=== PATIENT | female | born 1990 | race Caucasian/White ===

== ENCOUNTER → 2017-01-09 12:36 | Observation (INO) ==
[2017-01-09 11:45] LABS: Bilirubin,Urine Negative (Negative); Blood,Urine Negative (Negative); Color,Urine Yellow (Yellow); Glucose,Urine (UA) Normal (Normal); Ketones,Urine Negative (Negative); Leukocyte Esterase,Urine Moderate (Negative); Nitrite,Urine Negative (Negative); PH,Urine 6.5 pH Units (5.0-8.0); Protein,Urine Negative (Neg-Trace); Urobilinogen,Urine Normal (Normal)
[2017-01-09 11:46] LABS: Hyaline Casts,Urine None Seen per lpf (None-Few)
[2017-01-09 11:48] LABS: Clarity,Urine Slightly Hazy (Clear)
[2017-01-09 11:52] LABS: Amphetamine Screen,Urine Negative ng/mL (Cutoff=1000); Barbiturate Screen,Urine Negative ng/mL (Cutoff=200); Benzodiazepines Screen,Urine Negative ng/mL (Cutoff=200); Cannabinoid Screen,Urine Negative ng/mL (Cutoff = 50); Cocaine Screen,Urine Negative ng/mL (Cutoff= 300); Opiate Screen,Urine Negative ng/mL (Cutoff=300); Phencyclidine Screen,Urine Negative ng/mL (Cutoff=25)
--- NOTE | 2017-01-09 11:53 | OB/GYN Progress Note ---
Date of Encounter: 01/09/17 Time of Encounter: 11:50 - Assessment and Plan (1) 31 weeks gestation of Current Visit: Yes Status: Acute Admitted for labor evaluation (2) Vaginal discharge during in third trimester Current Visit: Yes Status: Acute Speculum exam Negative nitrazine (3) Cramping affecting , antepartum Current Visit: Yes Status: Acute External and toco monitoring SVE FT/thick/high (4) Non-stress test reactive Current Visit: Yes Status: Acute 125 bpm, moderate variability, + 15x15 accels, no decels. Subjective - Subjective Principal diagnosis: Vaginal discharge, abdominal cramping, low back pain 31w1d Interval history: Pt is a 26 year old, at 31w1d admitted for complaint of "menstrual cramping " low back pain, and increased vaginal discharge. Patient reports + movement, denies bleeding. Denies itching and burning, does report lower pelvic pain that radiates to the top of the thighs. Antepartum ROS: movement normal, no loss of fluid, no vaginal bleeding Objective - Vital Signs Vital Signs: Intake and Output 01/08/17 01/09/17 01/09/17 23:59 07:59 15:59 Other: Weight 106.9 kg Patient Weight 01/09/17 23:59 Weight 106.9 kg - Exam FHR: auscultation normal, category 1 FHR comments: FHR 125 bpm, moderate variability, + 15x15 accels, no decels. Category I tracing Auscultation: bilateral: normal Abdomen: Present: normal appearance, soft, gravid Uterus: Present: normal Cervical dilation: FT Cervix effacement: thick station: -3 Comments: Sterile speculum exam completed. Normal white vaginal discharge noted in vaginal vault. No fluid visualized, nitrazine negative. Negative CVA tenderness. - Labs Labs: Abnormal lab results Ur Leukocyte Esterase Moderate (Negative) H 01/09/17 11:35
[2017-01-09 11:57] LABS: Squamous Epithelial Cell,Urine Few per lpf (None-Few)
[2017-01-09 11:58] LABS: Bacteria,Urine Many per hpf (None-Few); RBC,Urine 0-3 per hpf (0-3)
--- NOTE | 2017-01-09 12:22 | Discharge Summary ---
Date of Encounter: 01/09/17 Time of Encounter: 12:21 - Discharge Diagnosis (1) 31 weeks gestation of Priority: Primary Status: Acute Comments: admitted for observation (2) Vaginal discharge during in third trimester Priority: Secondary Status: Acute Comments: normal discharge in (3) Cramping affecting , antepartum Priority: Secondary Status: Acute Comments: discussed PO hydration SVE closed. (4) Non-stress test reactive Priority: Secondary Status: Acute Comments: baseline 120 bpm moderate variability +15x15 accels no decels noted. CAt. 1 tracing. no contraction - Discharge Medications Home Medications: Venlafaxine [Effexor] 75 mg PO DAILY 10/07/15 [History] Pantoprazole Sodium [Protonix] 20 mg PO DAILY 10/03/16 [History] Pnv62/FA/Om3/Dha/Epa/Fish Oil [[facility] Gummy Vitamins] 1 each PO DAILY [History] Cyclobenzaprine [Flexeril] 1 tab PO DAILY PRN 01/09/17 [History] Allergies/Adverse Reactions: 3 Allergy/AdvReac Type Severity Reaction Status Date / Time No Known Allergies Allergy Verified 01/09/17 11:24 Data Procedures and tests throughout hospitalization: Laboratory Tests 01/09/17 01/09/17 11:35 11:35 Urine Color Yellow Urine Clarity Slightly Hazy Urine pH 6.5 Ur Specific [place] 1.010 Urine Protein Negative Urine Glucose (UA) Normal Urine Ketones Negative Urine Blood Negative Urine Nitrite Negative Urine Bilirubin Negative Urine Urobilinogen Normal Ur Leukocyte Esterase Moderate H Urine Microscopic RBC 0-3 Urine Microscopic WBC 3-5 H Ur Squamous Epith Cells Few Urine Bacteria Many H Hyaline Casts None Seen Ur Culture Indicated? YES A Urine Opiates Screen Negative Ur Barbiturates Screen Negative Ur Phencyclidine Scrn Negative Ur Amphetamines Screen Negative U Benzodiazepines Scrn Negative Urine Cocaine Screen Negative U Marijuana (THC) Screen Negative Labs on day of discharge: Labs from last 24 hours 01/09/17 01/09/17 11:35 11:35 Urine Color Yellow Urine Clarity Slightly Hazy Urine pH 6.5 Ur Specific [place] 1.010 Urine Protein Negative Urine Glucose (UA) Normal Urine Ketones Negative Urine Blood Negative Urine Nitrite Negative Urine Bilirubin Negative Urine Urobilinogen Normal Ur Leukocyte Esterase Moderate H Urine Microscopic RBC 0-3 Urine Microscopic WBC 3-5 H Ur Squamous Epith Cells Few Urine Bacteria Many H Hyaline Casts None Seen Ur Culture Indicated? YES A Urine Opiates Screen Negative Ur Barbiturates Screen Negative Ur Phencyclidine Scrn Negative Ur Amphetamines Screen Negative U Benzodiazepines Scrn Negative Urine Cocaine Screen Negative U Marijuana (THC) Screen Negative Date of admission: 01/09/17 11:00 Primary care physician: Linda Lincoln CNP Discharging clinician: Luz Zimmerman Anticipated date of discharge: 01/09/17 - Patient Status Disposition: Home, Self-Care Condition: Good - Discharge Instructions Follow Up With: Linda Lincoln CNP [Primary Care Provider] - Luis F Meadows DO [Partnered Physician] - - Diet and Activity Activity: increase activity as tolerated Diet: regular diet Hospital Course GLACIOLOGIST Time Attestation: Total time spent providing and/or coordinating discharge services: Time Spent: Less than 30 minutes Exam - Constitutional General appearance IM: A&O X 3, pleasant, answers questions appropriately - Other Additional findings: FHR 120 bpm moderate variability +15x15 accels no decels noted. Cat. 1 tracing. No contractions - VTE Reasons for not Prescribing Prophylaxis: Treatment not Indicated - Low risk for VTE
[~2017-01-09 12:36] MED LIST: FLUARIX QUAD 2017-18 36MOS UP/PF 0.5 ML SYRINGE IM ONE
== END | disposition home or self-care (01) ==
LOC: 1NENULAB
PROVIDERS: ADMIT Obstetrics & Gynecology; ATTEND Obstetrics & Gynecology

== ENCOUNTER → 2017-02-05 03:58 | Observation (INO) ==
--- NOTE | 2017-02-05 01:02 | OB/GYN History & Physical ---
Date of Encounter: 02/05/17 Time of Encounter: 00:30 Assessment and Plan (1) 35 weeks gestation of Current visit: Yes Status: Acute (2) Uterine contractions Current visit: Yes Status: Acute - NST assessment - UDS. - UA. Update: Patient displayed a reactive NST. UA revealed trace LE. Urine culture pending. UDS was negative. Patient has not been displaying regular contractions indicative of labor. She will be discharged home. History of Present Illness Chief complaint: Uterine Contractions HPI: Ms. Desai is a 26 year old female at 35 wks gestation with a PMH of gestational diabetes A-1 that presents for perterm labor evaluation. She says that she has been feeling contractions that have been 2 minutes apart since 10 pm. She admits to good movement. She denies any vaginal fluid leakage or bleeding. She denies any EPPERSON but admits to recent vision changes, stating she sees black spots occasionally. She admits to mild shortness of breath for the past month. She denies any chest pain, fever, chills, nausea, vomiting, or dysuria. Patient was recently prescribed a 7-day course of Flagyl for suspected Bacterial Vaginosis. Culture was negative and she is currently on day 7 of her antibiotic. HepBSAb: non-reactive (08/19/16) HIV Ag/Ab: Non-reactive T. Pallidum Ab: negative Rubella Ab: positive Varicella Ab: positive Blood Type: B - Past Med Surg Social Fam HX - Past Medical History Medical history: other Psychiatric history: anxiety, depression - Past Surgical History Surgical History: no surgical history - Social History Smoking Status: Current every day smoker Smokeless Tobacco Status: No Alcohol use: none Drug use: none - Family History Mother Adopted: No Living Status: Still Living Hx Family Cardiac Disorders: No Hx Family Respiratory Disorders: No Hx Family Cancer: No Hx Family GI Disorders: No Hx Family Endocrine Disorder: No Hx Family Neuromuscular Disorders: No Hx Family Neurologic Disorders: No Hx Family HEENT Disorders: No Hx Family Autoimmune Disorders: No Obstetrical History - Pregnancies : 3 Para: 2 Term: 2 : 0 Ab's: 0 Livin Medications and Allergies Venlafaxine [Effexor] 75 mg PO DAILY 10/07/15 [History] Pantoprazole Sodium [Protonix] 20 mg PO DAILY 10/03/16 [History] Pnv62/FA/Om3/Dha/Epa/Fish Oil [[employer]vs Gummy Vitamins] 1 each PO DAILY [History] Cyclobenzaprine [Flexeril] 1 tab PO DAILY PRN 01/09/17 [History] 3 Allergy/AdvReac Type Severity Reaction Status Date / Time No Known Allergies Allergy Verified 01/09/17 11:24 Exam - Vital Signs Vital signs: BP: 113/69 HR: 104 FHR: 120 [place]: 65 - Constitutional Constitutional: well developed, well nourished, no acute distress, average body habitus - Lungs Respiratory exam: CTAB - Cardiovascular Cardiovascular exam: RRR, +S1, +S2 - Abdomen Abdomen: Present: bowel sounds normal, gravid Abdomen detail: right lower quadrant: tenderness (Minor tenderness with deep palpation.), left lower quadrant: tenderness - Extremities Extremities exam: full ROM, normal capillary refill, normal inspection, radial pulses palpable and symmetrical Deep Tendon Reflex Grade: 2+ Normal - Cervix Dilation: 0 (Cervix closed per nurse ) Results All other labs normal. - VTE Reasons for not Prescribing Prophylaxis: Treatment not Indicated - Low risk for VTE
[2017-02-05 01:27] LABS: Bilirubin,Urine Negative (Negative); Blood,Urine Negative (Negative); Clarity,Urine Clear (Clear); Color,Urine Yellow (Yellow); Glucose,Urine (UA) Normal (Normal); Ketones,Urine Trace mg/dL (Negative); Leukocyte Esterase,Urine Trace (Negative); Nitrite,Urine Negative (Negative); Protein,Urine Negative (Neg-Trace); Specific Gravity,Urine 1.013 (1.010-1.025); Urobilinogen,Urine Normal (Normal)
[2017-02-05 01:39] LABS: Amphetamine Screen,Urine Negative ng/mL (Cutoff=1000); Barbiturate Screen,Urine Negative ng/mL (Cutoff=200); Benzodiazepines Screen,Urine Negative ng/mL (Cutoff=200); Cannabinoid Screen,Urine Negative ng/mL (Cutoff = 50); Cocaine Screen,Urine Negative ng/mL (Cutoff= 300); Opiate Screen,Urine Negative ng/mL (Cutoff=300); Phencyclidine Screen,Urine Negative ng/mL (Cutoff=25)
[2017-02-05 01:41] LABS: Bacteria,Urine Few per hpf (None-Few); Squamous Epithelial Cell,Urine Few per lpf (None-Few); WBC,Urine 0-3 per hpf (0-3)
== END | disposition home or self-care (01) ==
LOC: 1NENULAB
PROVIDERS: ADMIT Obstetrics & Gynecology; ATTEND Obstetrics & Gynecology

== ENCOUNTER 2017-02-19 00:42 | Inpatient (IN) ==
[2017-02-18 21:56] LABS: Bilirubin,Urine Negative (Negative); Blood,Urine Negative (Negative); Clarity,Urine Cloudy (Clear); Color,Urine Yellow (Yellow); Glucose,Urine (UA) Normal (Normal); Ketones,Urine Trace mg/dL (Negative); Leukocyte Esterase,Urine Moderate (Negative); Nitrite,Urine Negative (Negative); Protein,Urine Trace mg/dL (Neg-Trace); Specific Gravity,Urine 1.023 (1.010-1.025); Urobilinogen,Urine Normal (Normal)
[2017-02-18 21:59] LABS: Bacteria,Urine Many per hpf (None-Few); Hyaline Casts,Urine None Seen per lpf (None-Few); Squamous Epithelial Cell,Urine Many per lpf (None-Few); WBC,Urine 15-30 per hpf (0-3)
[2017-02-18 22:01] LABS: Amphetamine Screen,Urine Negative ng/mL (Cutoff=1000); Barbiturate Screen,Urine Negative ng/mL (Cutoff=200); Benzodiazepines Screen,Urine Negative ng/mL (Cutoff=200); Cannabinoid Screen,Urine Negative ng/mL (Cutoff = 50); Cocaine Screen,Urine Negative ng/mL (Cutoff= 300); Opiate Screen,Urine Negative ng/mL (Cutoff=300); Phencyclidine Screen,Urine Negative ng/mL (Cutoff=25)
[2017-02-18 22:19] LABS: Calcium Oxalate Crystals,Urine Present; RBC,Urine 0-3 per hpf (0-3)
--- NOTE | 2017-02-18 22:55 | OB/GYN Progress Note ---
Date of Encounter: 02/18/17 Time of Encounter: 22:54 - Assessment and Plan (1) 36 weeks gestation of Current Visit: Yes Status: Acute (2) Cramping affecting , antepartum Current Visit: Yes Status: Acute False labor. Seen and evaluated by RN. No cervical change. No contractions. Reactive NST. Objective - Vital Signs Vital Signs: Intake and Output 02/18/17 02/18/17 02/18/17 07:59 15:59 23:59 Other: Weight 106.5 kg Patient Weight 02/18/17 23:59 Weight 106.5 kg - Labs Labs: Abnormal lab results Urine Clarity Cloudy (Clear) A 02/18/17 21:45 Urine Ketones Trace mg/dL (Negative) H 02/18/17 21:45 Ur Leukocyte Esterase Moderate (Negative) H 02/18/17 21:45 Urine Microscopic WBC 15-30 per hpf (0-3) H 02/18/17 21:45 Ur Squamous Epith Cells Many per lpf (None-Few) H 02/18/17 21:45 Urine Bacteria Many per hpf (None-Few) H 02/18/17 21:45 Ur Culture Indicated? YES (NO) A 02/18/17 21:45
[~2017-02-19 00:42] MED LIST changes: +*HR* Nalbuphine 20 MG/ML AMPUL IVP PRN; -FLUARIX QUAD 2017-18 36MOS UP/PF 0.5 ML SYRINGE IM ONE; +Famotidine 20 MG/2 ML VIAL IVP PRN; +Metoclopramide 10 MG/2 ML VIAL IVP PRN; +Naloxone 0.4 MG/ML INJ IVP PRN
[2017-02-19] MEDS ORDERED: Ringers Solution, Lactated 1,000 ML IVC SCH (00:45)
[2017-02-19] MEDS ORDERED: Venlafaxine XR (24 HR) 75 MG CAP.ER.24H PO SCH ×2 (02:10→22:45)
[2017-02-19 03:51] LABS: Basophils # 0.1 K/mcL (0.0-0.2); Basophils % 0.4 %; Eosinophils # 0.2 K/mcL (0.0-0.6); Eosinophils % 1.2 %; Hematocrit 35.8 % (35.3-44.9); Immature Granulocytes % 2.5 % (0-4); Lymphocytes # 2.5 K/mcL (0.6-4.6); Lymphocytes % 15.1 %; Mean Corpuscular HGB Conc 33.5 g/dL (31.6-35.5); Mean Corpuscular Hemoglobin 30.2 pg (28.0-33.3); Mean Corpuscular Volume 89.9 fL (83.0-100.0); Mean Platelet Volume 12.2 fL (9.4-12.4); Monocytes % 6.1 %; Neutrophils # 12.2 K/mcL (1.6-8.9); Platelet Count 190 K/mcL (140-400); Red Blood Count 3.98 M/mcL (3.82-4.97); Red Cell Distribution Width 14.5 % (11.5-14.5); Segmented Neutrophils % 74.7 %
[2017-02-19] MEDS: Ondansetron 4 MG/2 ML VIAL IVP PRN ×2 (05:42→16:19)
[2017-02-19] MEDS ORDERED: Epidural Premix (fent/bupiv) 110 ML EP ONE ×2 (08:25→13:23)
--- NOTE | 2017-02-19 09:10 | Anesthesia Evaluation PreOp ---
Date of Encounter: 02/19/17 Time of Encounter: 08:44 - Past History Planned Operation: vaginal del, , spont Cardiac History: Denies any Significant Hx Pulmonary History: Denies Any Significant HX DIRECTOR INSURANCE History: Denies Any Significant HX Other Medical History: GERD (on protonix.), Other (gestational DM on metformin) Anesthesia History: No Prior Anesthetic Complications, Past Anesthesia : Yes (37wk ) Alcohol Use: none Drug use: none Medications and Allergies Venlafaxine [Effexor] 75 mg PO DAILY 10/07/15 [History] Pantoprazole Sodium [Protonix] 20 mg PO DAILY 10/03/16 [History] Pnv62/FA/Om3/Dha/Epa/Fish Oil [[employer]vs Gummy Vitamins] 1 each PO DAILY [History] Cyclobenzaprine [Flexeril] 1 tab PO DAILY PRN 01/09/17 [History] Metformin HCl [Glumetza] 500 mg PO BID 02/18/17 [History] 3 Allergy/AdvReac Type Severity Reaction Status Date / Time No Known Allergies Allergy Verified 01/09/17 11:24 Anesthesia Results - Labs 02/19/17 00:10 02/19/17 00:10 Anesthesia Exam - HEENT Pupil (Motor): Pupils equal Mallampati: I Oral Opening: Greater than 3 - DIRECTOR INSURANCE LOC: Oriented DIRECTOR INSURANCE Motor: Normal RUE, Normal LUE, Normal RLE, Normal LLE, Normal Face DIRECTOR INSURANCE Sensory: Normal: RUE, LUE, RLE, LLE, Face - Cardiac Rhythm: Regular Murmur: None - Pulmonary Breath Sounds: bilateral Clear Respiratory Effort: Symmetrical Anesthesia Assess/Plan ASA Score: 2 Modified [place] Scale for Level of Consciousness: Cooperative, oriented, and tranquil Anesthetic Plan: General, Regional Monitoring Plan: Standard Monitors Recovery Plan: PACU
--- NOTE | 2017-02-19 09:21 | Anesthesia Procedures ---
Date of Encounter: 02/19/17 Time of Encounter: 08:44 Procedures: Anesthesia - Epidural/Spinal Patient ID/Chart reviewed: Yes Patient examined: Yes OB Eval: Gestational age: 37 OB Eval: : 3 OB Eval: Hx Para: 2 OB Eval: Dilated at (cm): 5 OB Eval: Contractions: Non-stressed pattern Consent Obtained: Yes Supplemental Oxygen: None/Room Air Site Prep: Aseptic Technique, Sterile prep and drape, 0.5% Chlorhexidine/Alcohol Patient position: upright Local Anesthetic: Lidocaine 1% Amount of Local Anesthetic used: 2 Touhy Needle Gauge: 18 Touhy Needle Depth (cm): 6 Catheter Depth at Skin (cm): 10 Test Dose (1.5% Lido + Epi): Volume given (mls): 3 Test Dose Result: Negative Loading Dose: Other: 10 from solution Loading Dose Administered: Thru Catheter Infusion Med: 0.125% Bupivacaine w/ 2 mcg/ml Fentanyl Infusion Rate (mls/hr): [address]: Tegaderm, Tape Interspace Used: L3-L4 Loss of Resistance (CHARLES): Yes (saline) Blood: No CSF: No Paresthesia: No Procedure: vss though out, FHR stable per RN's
--- NOTE | 2017-02-19 09:59 | OB/GYN History & Physical ---
Date of Encounter: 02/19/17 Time of Encounter: 09:56 Assessment and Plan (1) 37 weeks gestation of Current visit: Yes Status: Chronic (2) Spontaneous onset of labor after 37 but before 39 completed weeks gestation with delivery by planned section Current visit: Yes Status: Acute History of Present Illness HPI: Ms. Desai is a 26 year old female Patient is a 26-year-old 3 para 2 white female at 37 weeks is admitted in spontaneous labor. She denies problems with her . Past Med Surg Social Fam HX - Past Medical History Medical history: other Psychiatric history: anxiety, depression - Past Surgical History Surgical History: other - Social History Smoking Status: Current every day smoker Packs per day: 1/2 Smokeless Tobacco Status: No Alcohol use: none Drug use: none - Family History Mother Adopted: No Living Status: Still Living Hx Family Cardiac Disorders: No Hx Family Respiratory Disorders: No Hx Family Cancer: No Hx Family GI Disorders: No Hx Family Genitourinary Disorders: No Hx Family Endocrine Disorder: No Hx Family Musculoskeletal Disorders: No Hx Family Neuromuscular Disorders: No Hx Family Neurologic Disorders: No Hx Family HEENT Disorders: No Hx Family Autoimmune Disorders: No Hx Family Reproductive Disorders: No Hx Family Psychosocial Disorders: No Hx Family Medical Disorders: No Obstetrical History - Pregnancies : 3 Para: 2 Medications and Allergies Venlafaxine [Effexor] 75 mg PO DAILY 10/07/15 [History] Pantoprazole Sodium [Protonix] 20 mg PO DAILY 10/03/16 [History] Pnv62/FA/Om3/Dha/Epa/Fish Oil [Cvs Gummy Vitamins] 1 each PO DAILY [History] Cyclobenzaprine [Flexeril] 1 tab PO DAILY PRN 01/09/17 [History] Metformin HCl [Glumetza] 500 mg PO BID 02/18/17 [History] 3 Allergy/AdvReac Type Severity Reaction Status Date / Time No Known Allergies Allergy Verified 01/09/17 11:24 Review of System OB All systems PM: reviewed and no additional remarkable complaints except as stated - Genitourinary Genitourinary: amenorrhea - Menstruation Menstruation: amenorrhea Exam - Constitutional Constitutional: well developed, well nourished, no acute distress, average body habitus - HEENT HEENT: Normocephaly - Neck Neck exam: full ROM - Lungs Respiratory exam: CTAB - Cardiovascular Cardiovascular exam: RRR - Abdomen Abdomen: Present: gravid, non tender - Extremities Extremities exam: full ROM Deep Tendon Reflex Grade: 2+ Normal - Vulva Vulva: bilateral: normal - Vagina Vagina: Present: normal moisture - Cervix Dilation: 5 Effacement: 80 Station: -1 Results Result Diagrams: 02/19/17 00:10 02/19/17 00:10 Abnormal lab results WBC 16.3 K/mcL (4.3-11.1) H 02/19/17 00:10 Neutrophils # 12.2 K/mcL (1.6-8.9) H 02/19/17 00:10 Urine Clarity Cloudy (Clear) A 02/18/17 21:45 Urine Ketones Trace mg/dL (Negative) H 02/18/17 21:45 Ur Leukocyte Esterase Moderate (Negative) H 02/18/17 21:45 Urine Microscopic WBC 15-30 per hpf (0-3) H 02/18/17 21:45 Ur Squamous Epith Cells Many per lpf (None-Few) H 02/18/17 21:45 Urine Bacteria Many per hpf (None-Few) H 02/18/17 21:45 Ur Culture Indicated? YES (NO) A 02/18/17 21:45 All other labs normal.
--- NOTE | 2017-02-19 10:01 | OB/GYN Progress Note ---
Date of Encounter: 02/19/17 Time of Encounter: 10:00 - Assessment and Plan (1) 37 weeks gestation of Current Visit: Yes Status: Chronic AROM / clear (2) Spontaneous onset of labor after 37 but before 39 completed weeks gestation with delivery by planned section Current Visit: Yes Status: Acute Subjective - Subjective Antepartum ROS: contractions Objective - Vital Signs Vital Signs: Intake and Output 02/18/17 02/19/17 02/19/17 23:59 07:59 15:59 Other: Weight 106.5 kg - Exam FHR: category 1 Cervical dilation: 6-7 Cervix effacement: 80 station: -1 - Labs Labs: Abnormal lab results WBC 16.3 K/mcL (4.3-11.1) H 02/19/17 00:10 Neutrophils # 12.2 K/mcL (1.6-8.9) H 02/19/17 00:10 Urine Clarity Cloudy (Clear) A 02/18/17 21:45 Urine Ketones Trace mg/dL (Negative) H 02/18/17 21:45 Ur Leukocyte Esterase Moderate (Negative) H 02/18/17 21:45 Urine Microscopic WBC 15-30 per hpf (0-3) H 02/18/17 21:45 Ur Squamous Epith Cells Many per lpf (None-Few) H 02/18/17 21:45 Urine Bacteria Many per hpf (None-Few) H 02/18/17 21:45 Ur Culture Indicated? YES (NO) A 02/18/17 21:45
[2017-02-19] MEDS ORDERED: Ondansetron 4 MG/2 ML VIAL ONE (10:02)
[2017-02-19] MEDS ORDERED: Ondansetron 4 MG/2 ML VIAL IVP ONE (10:03)
[2017-02-19] MEDS ORDERED: ROPIVACAINE HCL/PF 0.5% 30 ML VIAL ONE (13:56)
[2017-02-19] MEDS: Oxytocin 20 units/ LR 1000 mL 20 UNIT/1,000 ML BAG IVC SCH ×2 (14:20→21:18)
[2017-02-19] MEDS: Mag Hydrox/Al Hydrox/Simeth 30 ML UDC PO PRN (16:20)
[2017-02-19] MEDS ORDERED: Acetaminophen 325 MG TABLET PO PRN (17:54)
[2017-02-19] MEDS ORDERED: Measles/Mumps/Rubella Vacc 0.5 ML VIAL SQ PRN (17:54)
[2017-02-19] MEDS ORDERED: Sennosides 8.6 MG TABLET PO PRN (17:54)
[2017-02-19] MEDS ORDERED: Rho Immune Globulin 1,500 UNIT SYRINGE IM PRN (17:54)
[2017-02-19] MEDS ORDERED: Oxytocin 20 units/ LR 1000 mL 20 UNIT/1,000 ML BAG IVC SCH (18:00)
--- NOTE | 2017-02-19 18:02 | OB/GYN Procedure Note ---
Delivery - Delivery Date: 02/19/17 Provider: yTe Vigil Intrapartum events: none Delivery induction: none Delivery augmentation: rupture of membranes, pitocin Delivery monitor: external FHT, external uterine Anesthesia: epidural Estimated Blood Loss: 300 - Infant (s) A Delivery Date: 02/19/17 Delivery Time: 17:15 Presentation: vertex Position: IZAIAH Route of delivery: Gender: Female Viability: Viable Pounds: 7 Ounces: 0 Weight Gram: 3.18 kg at 1 minute: 8 at 5 mins: 9 Shoulder Dystocia: not encountered Specimens collected: cord blood Placenta: spontaneous - Repair Episiotomy: none Laceration Description: None - Complications Delivery complications: none - Disposition Mom disposition: stable in LDR disposition: stable in LDR - Comments Comments: Patient progressed to complete and on the perineum. She delivered a live female weighing 7 pounds with Apgars of 8 and 9. Delivery was 1715. Placenta delivered spontaneously intact at 1747. Position was left occiput transverse and estimated blood loss was 300 mL.
[2017-02-19] MEDS: Ibuprofen 600 MG TABLET PO PRN (21:15)
[2017-02-20] MEDS: Mag Hydrox/Al Hydrox/Simeth 30 ML UDC PO PRN (03:37)
[2017-02-20] MEDS: Ibuprofen 600 MG TABLET PO PRN ×2 (03:38→10:34)
[2017-02-20 06:01] LABS: Basophils # 0.1 K/mcL (0.0-0.2); Basophils % 0.4 %; Eosinophils # 0.2 K/mcL (0.0-0.6); Eosinophils % 1.4 %; Hemoglobin 10.2 g/dL (11.5-15.4); Immature Granulocytes % 1.3 % (0-4); Mean Corpuscular Hemoglobin 30.3 pg (28.0-33.3); Mean Platelet Volume 11.4 fL (9.4-12.4); Monocytes # 1.2 K/mcL (0.0-1.3); Monocytes % 7.9 %; Platelet Count 169 K/mcL (140-400); Red Blood Count 3.37 M/mcL (3.82-4.97); Red Cell Distribution Width 14.4 % (11.5-14.5)
--- NOTE | 2017-02-20 08:11 | OB/GYN Progress Note ---
Date of Encounter: 02/20/17 Time of Encounter: 08:05 - Assessment and Plan (1) Status post vaginal delivery Current Visit: Yes Status: Acute (2) Family planning advice Current Visit: Yes Status: Acute Patient will be kept nothing by mouth for bilateral partial salpingectomy later today. Subjective - Subjective Interval history: patient is doing well today still wanting a tubal ligation, states bleeding is slowing down and having min cramping, has been NPO since midnight Patient reports: appetite normal, voiding normally, pain well controlled, ambulating normally : doing well Objective - Latest Vital Signs Latest vital signs: Vital Signs Temp Pulse Resp BP Pulse Ox 02/20/17 07:30 98.3 F 92 16 116/76 02/20/17 03:35 98.3 F 88 16 104/71 98 02/19/17 22:30 98.5 F 96 16 108/66 97 02/19/17 21:15 98.3 F 93 14 101/59 98 02/19/17 20:15 98.3 F 88 16 112/68 97 Intake and Output 02/19/17 02/20/17 02/20/17 23:59 07:59 15:59 Intake Total 1000 / 1000 Output Total 700 / 700 800 / 800 Balance 300 / 300 -800 / -800 Intake: IV Fluids 1000 / 1000 Pitocin 20 unit In 1,000 ml @ 1000 / 1000 Per Protocol IVC .Q0M [facility] Rx#: [id number] Output: Urine 800 / 800 Catheter 700 / 700 Other: Weight 104.4 kg 104.5 kg Patient Weight 02/20/17 23:59 Weight 104.5 kg - Exam Lungs: bilateral: normal Chest: Normal S1, Normal S2 Extremities: Present: normal Abdomen: Present: normal appearance, soft, gravid Uterus: Present: normal, firm Uterus Position: At Umbilicus - Labs Labs: Laboratory Results - last 24 hr 02/19/17 02/20/17 18:00 05:47 WBC 15.7 H RBC 3.37 L Hgb 10.2 L D Hct 30.0 L MCV 89.0 MCH 30.3 MCHC 34.0 RDW 14.4 Plt Count 169 MPV 11.4 Immature Gran % 1.3 Seg Neutrophils % 76.0 Lymphocytes % 13.0 Monocytes % 7.9 Eosinophils % 1.4 Basophils % 0.4 Neutrophils # 12.0 H Lymphocytes # 2.0 Monocytes # 1.2 Eosinophils # 0.2 Basophils # 0.1 Baby's Blood Type B RH POSITIVE Mother's Blood Type B RH NEGATIVE Rhogam Indicated YES
[2017-02-20] MEDS ORDERED: Prenatal Vit/FA 1 EACH TABLET PO SCH (09:00)
[2017-02-20] MEDS ORDERED: *HR* Succinylcholine 200 MG/10 ML VIAL IVP ONE (13:21)
[2017-02-20] MEDS ORDERED: Ketorolac 30 MG/ML VIAL ONE (13:21)
[2017-02-20] MEDS ORDERED: Lidocaine -MPF 2% 2 ML VIAL ONE (13:21)
[2017-02-20] MEDS ORDERED: *HR* Propofol 200 MG/20 ML VIAL IVP ONE (13:21)
[2017-02-20] MEDS ORDERED: *HR* Rocuronium Bromide 50 MG/5 ML VIAL ONE (13:21)
[2017-02-20] MEDS ORDERED: *HR* FentaNYL (PF) 100 MCG/2 ML VIAL ONE ×2 (13:21→14:38)
[2017-02-20] MEDS ORDERED: *HR* Midazolam HCl 2 MG/2 ML VIAL ONE (13:21)
[2017-02-20] MEDS ORDERED: Ondansetron 4 MG/2 ML VIAL ONE (13:21)
[2017-02-20] MEDS ORDERED: Lidocaine -MPF 4% 5 ML AMPUL ONE (13:21)
[2017-02-20] MEDS ORDERED: Dexamethasone 4 MG/ML VIAL ONE (13:21)
[2017-02-20] MEDS ORDERED: Neostigmine Methylsulfate 3 MG/3 ML SYRINGE ONE (13:21)
[2017-02-20] MEDS ORDERED: *HR* HYDROmorphone (PF) 1 MG/ML SYRINGE IVP PRN (13:35)
[2017-02-20] MEDS ORDERED: *HR* Promethazine 25 MG/ML VIAL IVP PRN (13:35)
--- NOTE | 2017-02-20 13:37 | Anesthesia Evaluation PreOp ---
Date of Encounter: 02/20/17 Time of Encounter: 13:35 - Past History Planned Operation: BPS Cardiac History: Denies any Significant Hx Pulmonary History: Denies Any Significant HX STOCK TRACER History: Denies Any Significant HX Other Medical History: GERD Anesthesia History: No Prior Anesthetic Complications, Past Anesthesia (None) : No Alcohol Use: none Drug use: none Medications and Allergies Venlafaxine [Effexor] 75 mg PO DAILY 10/07/15 [History] Pantoprazole Sodium [Protonix] 20 mg PO DAILY 10/03/16 [History] Pnv62/FA/Om3/Dha/Epa/Fish Oil [Cvs Gummy Vitamins] 1 each PO DAILY [History] Cyclobenzaprine [Flexeril] 1 tab PO DAILY PRN 01/09/17 [History] Metformin HCl [Glumetza] 500 mg PO BID 02/18/17 [History] 3 Allergy/AdvReac Type Severity Reaction Status Date / Time No Known Allergies Allergy Verified 01/09/17 11:24 - Meds/Allergy Pre-op Review Medications Reviewed: Yes Allergies Reviewed: Yes Beta Blockers on Current Med List: No Anesthesia Results - Labs 02/20/17 05:47 02/19/17 00:10 Anesthesia Exam O2 Sat Weight 104.5 kg Weight 104.4 kg O2 Sat by Pulse Oximetry 98 O2 Sat by Pulse Oximetry 97 O2 Sat by Pulse Oximetry 98 O2 Sat by Pulse Oximetry 97 Vital Signs Temp Pulse Resp BP Pulse Ox 98.3 F 88 16 112/68 97 02/19/17 20:15 02/19/17 20:15 02/19/17 20:15 02/19/17 20:15 02/19/17 20:15 Height: 5'10'' Weight: 230# NPO (# of Hours): > 8 hrs Pain Scale: 0 Pain Scale Used: Numeric (1 - 10) - HEENT Pupil (Motor): Pupils equal, EOMI Mallampati: II Teeth: Normal Oral Opening: Greater than 3 - STOCK TRACER LOC: Oriented STOCK TRACER Motor: Normal RUE, Normal LUE, Normal RLE, Normal LLE, Normal Face STOCK TRACER Sensory: Normal: RUE, LUE, RLE, LLE, Face - Cardiac Rhythm: Regular Murmur: None JVD: No Carotid Bruit: No - Pulmonary Breath Sounds: bilateral Clear Respiratory Effort: Symmetrical Anesthesia Assess/Plan ASA Score: 2 Modified [place] Scale for Level of Consciousness: Cooperative, oriented, and tranquil Anesthetic Plan: General Autologous Blood: Yes Monitoring Plan: Standard Monitors Recovery Plan: PACU
[2017-02-20] MEDS ORDERED: Bupivacaine/EPI 1:200k 0.25%PF 30 ML VIAL ONE (13:42)
--- NOTE | 2017-02-20 14:43 | Operative Note ---
Date of procedure: 02/20/17 Pre-op diagnosis: Status post vaginal delivery, desires sterilization Post-op diagnosis: same Procedure: Bilateral partial salpingectomy Anesthesia: OSIRIS Surgeon: Luis F Meadows Endodontic Assistant: Huong Lewis Estimated blood loss (cc): 10 Specimen: Portions of the right and left fallopian tube Condition: stable Disposition: PACU Procedure in Detail: Patient is a 26-year-old female status post vaginal delivery who desired tubal ligation. Patient delivered vaginally yesterday and wanted a tubal ligation before she left the hospital the risks and benefits of the tubal which point a patient with failure rate of 5-8 per thousand with increased risk of ectopic if was to occur. Procedure: Patient was taken to the operating room where general anesthesia was found be adequate. She was placed in the dorsal supine position prepped and draped in usual fashion. Timeout was then obtained. A small infraumbilical incision was made with a scalpel and carried down to the underlying tissue to the fascia was identified. The fascia was nicked in midline and extended laterally with Irving scissors. The parietal peritoneum was identified tented up and entered sharply. 2 [employer] retractors were placed through the incision the left fallopian tube was identified grasped forward through the incision followed that to the fimbriated end. Using an 0 chromic the distal half of the fallopian tube was then suture ligated 2 and then this was excised also removing the fimbria. Good hemostasis was noted to was returned to the abdomen. In a similar fashion the right side was identified grasped and brought through the incision followed since fimbriated end and a similar fashion the distal end of the fallopian tube including the fimbria was then suture ligated with 0 chromic 2. The knuckle was excised. Good hemostasis was noted and this tube was returned to the abdomen. Fascia was then closed using 0 Vicryl in a running stitch and the skin was closed using a 4-0 Vicryl in subcutaneous manner. All needles and sponge counts were correct 3 she did receive preoperative antibiotics
--- NOTE | 2017-02-20 15:18 | Anesthesia Evaluation Post Op ---
Date of Encounter: 02/20/17 Time of Encounter: 15:16 - Vital Signs Vital Signs: Vital Signs Temperature 98.3 F 02/19/17 20:15 Pulse Rate 88 02/19/17 20:15 Respiratory Rate 16 02/19/17 20:15 Blood Pressure 112/68 02/19/17 20:15 O2 Sat by Pulse Oximetry 97 02/19/17 20:15 Temperature 99 F 02/20/17 14:45 Pulse Rate 75 02/20/17 15:05 Respiratory Rate 16 02/20/17 15:05 Blood Pressure 111/82 02/20/17 15:05 O2 Sat by Pulse Oximetry 99 02/20/17 15:05 - Lungs Lungs: Clear Ascult./Percussion - Airway Airway: Non-obstructed - Cardiovascular Regular Rate - Mental Status Mental Status: Alert & Oriented, Answers Appropriately - Pain Pain Scale: 2 Pain Scale used: Numeric (1 - 10) - Nausea Vomiting Nausea Vomiting: Not Present - Hydration Hydration: Ice chips - Discharge PostOp Status: Discharge Patient to home
[2017-02-20] MEDS ORDERED: Measles/Mumps/Rubella Vacc 0.5 ML VIAL SQ PRN (16:07)
[2017-02-20] MEDS ORDERED: Ondansetron 4 MG/2 ML VIAL IVP PRN (16:07)
[2017-02-20] MEDS ORDERED: *HR* HYDROcodone/Acet 10/325 mg TABLET PO PRN (16:07)
[2017-02-20] MEDS ORDERED: Ringers Solution, Lactated 1,000 ML IVC SCH (16:07)
[2017-02-20] MEDS ORDERED: Acetaminophen 325 MG TABLET PO PRN (16:07)
[2017-02-20] MEDS ORDERED: Ibuprofen 600 MG TABLET PO PRN (16:07)
[2017-02-20] MEDS: *HR* HYDROcodone/Acet 5/325 mg TABLET PO PRN ×2 (16:22→20:31)
[2017-02-20] MEDS ORDERED: Rho Immune Globulin 1,500 UNIT SYRINGE IM ONE (17:23)
[2017-02-21] MEDS: *HR* HYDROcodone/Acet 5/325 mg TABLET PO PRN (00:35)
[2017-02-21] MEDS ORDERED: Prenatal Vit/FA 1 EACH TABLET PO SCH (09:00)
[2017-02-21] MEDS ORDERED: Venlafaxine XR (24 HR) 75 MG CAP.ER.24H PO SCH (09:00)
--- NOTE | 2017-02-21 09:12 | Discharge Summary ---
Date of Encounter: 02/21/17 Time of Encounter: 08:55 - Discharge Diagnosis (1) Status post bilateral salpingectomy Priority: Primary Status: Acute (2) Status post vaginal delivery Priority: Primary Status: Acute (3) 37 weeks gestation of Priority: Primary Status: Chronic (4) anemia Priority: Primary Status: Acute - Discharge Medications Prescriptions: Ibuprofen [Motrin] 600 mg PO Q6HR PRN #60 tablet PRN Reason: Mild To Moderate Pain Ferrous Sulfate 325 mg PO DAILY #30 tablet Home Medications: Venlafaxine [Effexor] 75 mg PO DAILY 10/07/15 [History] Pantoprazole Sodium [Protonix] 20 mg PO DAILY 10/03/16 [History] Pnv62/FA/Om3/Dha/Epa/Fish Oil [[facility] Gummy Vitamins] 1 each PO DAILY [History] Cyclobenzaprine [Flexeril] 1 tab PO DAILY PRN 01/09/17 [History] Metformin HCl [Glumetza] 500 mg PO BID 02/18/17 [History] Ferrous Sulfate 325 mg PO DAILY #30 tablet 02/21/17 [Rx] Ibuprofen [Motrin] 600 mg PO Q6HR PRN #60 tablet 02/21/17 [Rx] Allergies/Adverse Reactions: 3 Allergy/AdvReac Type Severity Reaction Status Date / Time No Known Allergies Allergy Verified 01/09/17 11:24 Data Procedures and tests throughout hospitalization: Laboratory Tests 02/18/17 02/18/17 02/19/17 21:45 21:45 00:10 WBC 16.3 H RBC 3.98 Hgb 12.0 Hct 35.8 MCV 89.9 MCH 30.2 MCHC 33.5 RDW 14.5 Plt Count 190 MPV 12.2 Immature Gran % 2.5 Seg Neutrophils % 74.7 Lymphocytes % 15.1 Monocytes % 6.1 Eosinophils % 1.2 Basophils % 0.4 Neutrophils # 12.2 H Lymphocytes # 2.5 Monocytes # 1.0 Eosinophils # 0.2 Basophils # 0.1 Glucose Urine Color Yellow Urine Clarity Cloudy A Urine pH 7.0 Ur Specific [place] 1.023 Urine Protein Trace Urine Glucose (UA) Normal Urine Ketones Trace H Urine Blood Negative Urine Nitrite Negative Urine Bilirubin Negative Urine Urobilinogen Normal Ur Leukocyte Esterase Moderate H Urine Microscopic RBC 0-3 Urine Microscopic WBC 15-30 H Ur Squamous Epith Cells Many H Calcium Oxalate Crystal Present Urine Bacteria Many H Hyaline Casts None Seen Ur Culture Indicated? YES A Urine Opiates Screen Negative Ur Barbiturates Screen Negative Ur Phencyclidine Scrn Negative Ur Amphetamines Screen Negative U Benzodiazepines Scrn Negative Urine Cocaine Screen Negative U Marijuana (THC) Screen Negative Screen Baby's Blood Type Mother's Blood Type Rhogam Indicated Rhogam Req for Mother 02/19/17 02/19/17 02/20/17 00:10 18:00 05:47 WBC 15.7 H RBC 3.37 L Hgb 10.2 L D Hct 30.0 L MCV 89.0 MCH 30.3 MCHC 34.0 RDW 14.4 Plt Count 169 MPV 11.4 Immature Gran % 1.3 Seg Neutrophils % 76.0 Lymphocytes % 13.0 Monocytes % 7.9 Eosinophils % 1.4 Basophils % 0.4 Neutrophils # 12.0 H Lymphocytes # 2.0 Monocytes # 1.2 Eosinophils # 0.2 Basophils # 0.1 Glucose 85 Urine Color Urine Clarity Urine pH Ur Specific [place] Urine Protein Urine Glucose (UA) Urine Ketones Urine Blood Urine Nitrite Urine Bilirubin Urine Urobilinogen Ur Leukocyte Esterase Urine Microscopic RBC Urine Microscopic WBC Ur Squamous Epith Cells Calcium Oxalate Crystal Urine Bacteria Hyaline Casts Ur Culture Indicated? Urine Opiates Screen Ur Barbiturates Screen Ur Phencyclidine Scrn Ur Amphetamines Screen U Benzodiazepines Scrn Urine Cocaine Screen U Marijuana (THC) Screen Screen NEGATIVE Baby's Blood Type B RH POSITIVE Mother's Blood Type B RH NEGATIVE Rhogam Indicated YES Rhogam Req for Mother 1 Date of admission: 02/19/17 00:42 Primary care physician: Linad Lincoln CNP Discharging clinician: Mark Valdes Anticipated date of discharge: 02/21/17 - Patient Status Disposition: Home, Self-Care Condition: Good Functional capacity at discharge: independent ambulation Overall status at discharge: patient is progressing back to baseline - Discharge Instructions - Diet and Activity Activity: resume usual activities as tolerated Diet: regular diet Hospital Course Reason for admission: IUP at term Delivery: Episiotomy: none Laceration: none Other procedures: tubal ligation complications: none Discharge diagnosis: IUP at term delivered baby: female Hospital course: Patient is a 26-year-old 3 para 3 white female that presented at 37 weeks for spontaneous labor. She denied any problems with her . Patient progressed to complete and on the perineum. She delivered a live female weighing 7 pounds with Apgars of 8 and 9. Delivery was 1715. Placenta delivered spontaneously intact at 1747. Position was left occiput transverse and estimated blood loss was 300 mL. Patient wanted a tubal ligation before she left the hospital the risks and benefits of the tubal which point a patient with failure rate of 5-8 per thousand with increased risk of ectopic if was to occur. Patient was taken to the operating room where general anesthesia was found be adequate. She was placed in the dorsal supine position prepped and draped in usual fashion. Timeout was then obtained. A small infraumbilical incision was made with a scalpel and carried down to the underlying tissue to the fascia was identified. The fascia was nicked in midline and extended laterally with [place] scissors. The parietal peritoneum was identified tented up and entered sharply. 2 [employer] retractors were placed through the incision the left fallopian tube was identified grasped forward through the incision followed that to the fimbriated end. Using an 0 chromic the distal half of the fallopian tube was then suture ligated 2 and then this was excised also removing the fimbria. Good hemostasis was noted to was returned to the abdomen. In a similar fashion the right side was identified grasped and brought through the incision followed since fimbriated end and a similar fashion the distal end of the fallopian tube including the fimbria was then suture ligated with 0 chromic 2. The knuckle was excised. Good hemostasis was noted and this tube was returned to the abdomen. Fascia was then closed using 0 Vicryl in a running stitch and the skin was closed using a 4-0 Vicryl in subcutaneous manner. All needles and sponge counts were correct 3 she did receive preoperative antibiotics. When seen today, patient says that she is doing well and is in good mood. She is bottle feeding her baby and her baby is doing well. She says she has minimal abdominal cramping. Her vaginal bleeding has been light and improving since the delivery. She has good appetite. She has been able to void. No bowel movement yet but she has been able to pass gas. She has been able to ambulate well. She denies any headaches, nausea, vomiting, chest pain, shortness of breath, fever, or chills. She has a follow-up appointment with Dr. Meadows on 03/21/17. Delivery - Delivery Date: 02/19/17 Provider: Tye Vigil Intrapartum events: none Delivery induction: none Delivery augmentation: rupture of membranes, pitocin Delivery monitor: external FHT, external uterine Anesthesia: epidural Estimated Blood Loss: 300 - (s) A Infant Delivery Date: 02/19/17 Delivery Time: 17:15 Presentation: vertex Position: IZAIAH Route of delivery: Gender: Female Viability: Viable Pounds: 7 Ounces: 0 Weight Gram: 3.18 kg at 1 minute: 8 at 5 mins: 9 Shoulder Dystocia: not encountered Specimens collected: cord blood Placenta: spontaneous - Repair Episiotomy: none Laceration Description: None Date of procedure: 02/20/17 Pre-op diagnosis: Status post vaginal delivery, desires sterilization Post-op diagnosis: same Procedure: Bilateral partial salpingectomy Anesthesia: GETA Surgeon: Luis F Meadows Director Of Hospitality: Huong Lewis Estimated blood loss (cc): 10 Specimen: Portions of the right and left fallopian tube Condition: stable Disposition: PACU Time Attestation: Total time spent providing and/or coordinating discharge services: Exam - Constitutional Vitals: Temp Pulse Resp BP Pulse Ox 98.2 F 86 16 113/77 98 02/21/17 08:05 02/21/17 08:05 02/21/17 08:05 02/21/17 08:05 02/21/17 08:05 General appearance IM: A&O X 3, pleasant, no acute distress, answers questions appropriately - Respiratory Respiratory exam: Present: CTAB - Cardiovascular Cardiovascular exam IM: Present: RRR, +S1, +S2 - GI/Abdominal GI/Abdominal exam IM: normal bowel sounds, soft Incision: dry, dressed - Uterine Tone: Firm - Extremities Exam Extremities exam IM: Present: full ROM, normal capillary refill, normal inspection, radial pulses palpable and symmetrical. Absent: cyanotic, pedal edema, tenderness Additional comments: Pedal pulses intact and symmetrical bilaterally. - Neurological Exam Neurological exam: reflexes normal
[2017-02-22 00:29] VITALS: BP 113/77
== END 2017-02-21 11:40 | disposition home or self-care (01) | DRG 541 ==
LOC: 1NENULAB → 1NENUOBS 20:02
PROVIDERS: ADMIT Obstetrics & Gynecology; ATTEND Obstetrics & Gynecology